=== PATIENT | male | born 1980 | race Caucasian/White ===

== ENCOUNTER 2024-12-09 15:39 | Outpatient (CLI) | payer BC, SELFPAY ==
--- NOTE | 2024-12-09 15:47 | XR_ITS ---
FINAL REPORT CLINICAL HISTORY: Assess fecal burden COMPARISON: None FINDINGS: A single view of the abdomen was obtained. The visualized intestinal gas pattern appears unremarkable without evidence to suggest obstruction. No evidence of fecal impaction. No abnormal radiopacities are seen in the abdomen. IMPRESSION: No fecal impaction. Reviewed, Interpreted and Dictated by Philip Bennett MD Transcribed by Olimpia Partida Authenticated and [facility]
--- OUTSIDE RECORDS SUMMARY | 2024-12-09 15:47 | XMS_ITS | Encounter Summary ---
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 Name Role Phone Unavailable Primary Care Provider Unavailabl e Reason for Referral * Consultation (Routine) - Authorized Specialty Diagnoses / Procedures Referred By Contac t Referred To Contact Orthopaedic Surgery Diagnoses Rib pain on left side Dione Cheung PA [address] [id number] Phone: tel: fax: Referral ID Status Reason Start Date Expiration Date Visits Requested Visits Authorized [id number] Authorized Specialty Services Required 10/28/2024 04/29/2026 1 1 Encounter Details Date Type Department Care Team (Late st Contact Info) Description 10/28/2024 Community Orders Community [facility] [address] [place] [address] Dione Cheung PA [facility] [place] [address] Rib pain on left side (Primary Dx) Social History Tobacco Use Types Packs/Day Years Used Date Smoking Tobacco: Never Assessed Sex and Gender Information Value Date Recorded Sex Assigned at Not on file Legal Sex Male 8:26 PM EDT Gender Identity Not on file Sexual Orientation Not on file documented as of this encounter Plan of Treatment Scheduled Referrals Name Type Priority Associated Diagnoses Order Schedule Ambulatory referral to General Orthopaedics Outpatient Referral Routine Rib pain on left side Expected: 10/28/2024 (Approximate), Expires: 05/01/2026 documented as of this encounter Visit Diagnoses Diagnosis Rib pain on left side- Primary documented in this encounter
--- OUTSIDE RECORDS SUMMARY | 2024-12-09 15:47 | XMS_ITS | Clinical Summary ---
Author Organization Healthcare Address [address] 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
== END 2024-12-09 23:59 | disposition home or self-care (01) ==
LOC: RAD 15:43
PROVIDERS: PCP Family Medicine; Visit Provider Internal Medicine Gastroenterology
DX: K59.89 Other specified functional intestinal disorders (principal)
CPT/HCPCS: 74018

== ENCOUNTER 2025-04-15 07:38 | Day surgery (SDC) | payer BC, SELFPAY ==
--- NOTE | 2025-04-10 10:42 | EXP.HP ---
History of Present Illness *Admission Date: 04/15/25 *History of present illness: Mr. Finley is a 44-year-old gentleman who is here for diagnostic EGD. He was reporting pain in the left flank that would radiate around to the back. He thought this was related to weight lifting and was musculoskeletal. He did use NSAIDs and laid off the lifting but his symptoms persisted. He did have extensive testing including EKG, chest x-ray, CAT scan and troponins which were normal. He also reports left precordial chest pain. 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 However, he does report excessive belching. He reports no significant bloating or gassiness. He had been on pantoprazole which he did not feel was helping his symptoms. Since he has been off of this he has had more heartburn. However, he states that the pain is in the left precordium now more so than within the abdomen. He does state that initially he had some heartburn and then ever since then when he had a belch and heartburn he feels pain in the left chest. His abdominal x-ray did show a higher stool burden. The patient was placed on buspirone but has noted no remarkable change in his symptoms. When he stopped pantoprazole he has had the increased heartburn and has been on [id number] famotidine which helps some. The examination is deemed medically necessary for diagnostic EGD. The patient has been seen, interviewed and examined prior to the procedure by both myself and the anesthesia provider. [facility] Disclaimer: The information contained in this section may have been updated after the patient was seen, as this information can be updated by other users. Medical History No significant medical problems Surgical History Hx of tonsillectomy H/O knee surgery Family History Grandfather Prostate cancer Heart attack Social History (Updated 04/15/25 @ 08:29 by Krystal Lee RN) Smoking Status: Never smoker alcohol intake: never substance use type: denies use current occupational status: employed Travel in the last 8 weeks?: None caffeine: Yes Have you lived/traveled outside US in past 30 days?: No Contact w/someone who lives/traveled outside US past 30 days?: No Exposure to someone with infectious disease in past 14 days?: No Do you have a fever (greater than 100.4 F or 38 C)?: No Have you tested positive for COVID-19?: No Exposed to someone with COVID-19 in past 14 days?: No Do you have a sore throat?: No Do you have a cough?: No Do you have any weakness?: No Are you experiencing any nausea/vomitting?: No Do you have any diarrhea?: No Are you experiencing any unusual bleeding?: No Do you have any muscle aches/pain?: No Do you have any abdominal pain?: No Are you experiencing loss of taste or smell?: No Review of Systems Review of Systems Review of systems (narrative): Negative *Cardiovascular Comments: Negative *Gastrointestinal Comments: Negative *Genitourinary Comments: Negative *Musculoskeletal Comments: Negative *Neurologic Comments: Negative Meds Home Medications and Allergies Home Medications ?Medication ?Instructions ?Recorded ?Confirmed ?Type Saccharomyces boulardii 250 mg 250 mg PO DAILY 12/09/24 04/15/25 History capsule (Digest Probiotic (S.boulardii)) buspirone 10 mg tablet 10 mg PO BID #60 tabs 12/09/24 04/15/25 Rx cholecalciferol (vitamin D3) 250 250 mcg PO DAILY 12/09/24 04/15/25 History mcg (10,000 unit) capsule elderberry fruit 350 mg capsule 350 mg PO DAILY 12/09/24 04/15/25 History hydroxyzine HCl 25 mg tablet 25 mg PO NEEDED PRN Anxiety 12/09/24 04/15/25 History multivitamin 1 tab PO DAILY 12/09/24 04/15/25 History saw palmetto 500 mg capsule 500 mg PO DAILY 12/09/24 04/15/25 History zinc acetate 50 mg (zinc) capsule 50 mg PO DAILY 12/09/24 04/15/25 History psyllium husk (with sugar) 3 1 tbsp PO DAILY 02/10/25 04/15/25 History gram/12 gram oral powder (Konsyl (sugar)) famotidine 10 mg tablet 10 mg PO DAILY 04/15/25 04/15/25 History New Prescriptions to Start Prescriptions: Allergies Allergy/AdvReac Type Severity Reaction Status Date / Time No Known Allergies Allergy Verified 04/15/25 08:18 Exam *Routine HEENT Exam Head: Present normocephalic Eye: Present EOMI and PERRL ENT: Present mucous membranes moist *Routine Neck Exam Neck: Present supple *Routine Respiratory Exam Respiratory: Present CTA bilaterally *Routine Cardiovascular Exam Cardiovascular: Present RRR *Routine Abdominal Exam Abdominal: Present soft and normoactive bowel sounds; Absent tenderness *Routine Rectal Exam Rectal:: deferred *Routine Genitalia Exam Genitalia:: deferred *Routine Extremities Exam Extremities: Absent cyanosis, clubbing or edema *Routine Skin Exam Skin: Present warm; Absent rash *Routine Neurological Exam Neurological: Present alert and oriented X3 Assessment and Plan *Assessment and plan (1) Left-sided chest pain: Status: Acute Category: Medical Code(s): R07.9 - Chest pain, unspecified (2) Belching: Status: Acute Category: Medical Code(s): R14.2 - Eructation (3) Heartburn: Status: Acute Category: Medical Code(s): R12 - Heartburn (4) Non-cardiac chest pain: Status: Acute Category: Medical Code(s): R07.89 - Other chest pain (5) Left upper quadrant abdominal pain: Status: Acute Category: Medical Code(s): R10.12 - Left upper quadrant pain (6) Splenic flexure syndrome: Status: Acute Category: Medical Code(s): K63.9 - Disease of intestine, unspecified Plan A/P: 1. Left-sided chest pain with belching, heartburn and some left upper quadrant abdominal pain/splenic flexure syndrome is the preprocedural diagnosis. The patient will be anesthetized/sedated using MAC sedation. The patient has been seen and examined. Cardiac and lung assessment prior to the examination is stable. Proceed with planned diagnostic EGD.
[2025-04-14 14:51] VITALS: BMI 26.6
--- NOTE | 2025-04-15 06:50 | HMH.PROCNOTE ---
[facility] Procedure Note Date: 04/15/25 Time: 09:03 Procedure Note:: Upper Endoscopy Procedure Report: Esophagogastroduodenoscopy with cold biopsies and TTS balloon dilation Endoscopost: Axel Arechiga II, MD Referring Physician: [facility] Date of Procedure: April 15, 2025 Equipment: Olympus GIF-1100 standard upper endoscope Sedation: MAC sedation Indications: Mr. Finley is a 44-year-old gentleman who is here for diagnostic EGD. He was reporting pain in the left flank that would radiate around to the back. He also has retrosternal chest pain that radiates through to the back. He originally thought this was related to weight lifting and was musculoskeletal. He did use NSAIDs and laid off the lifting but his symptoms persisted. He did have extensive testing including EKG, chest x-ray, CAT scan and troponins which were normal. He also reports left precordial chest pain. 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 However, he does report excessive belching. He reports no significant bloating or gassiness. He had been on pantoprazole which he did not feel was helping his symptoms. Since he has been off of this he has had more heartburn. However, he states that the pain is in the left precordium now more so than within the abdomen. He does state that initially he had some heartburn and then ever since then when he had a belch and heartburn he feels pain in the left chest. His abdominal x-ray did show a higher stool burden. The patient was placed on buspirone but has noted no remarkable change in his symptoms. When he stopped pantoprazole he has had the increased heartburn and has been on [id number] famotidine which helps some. The examination is deemed medically necessary for diagnostic EGD. Procedure: Prior to the procedure, a history and physical exam was performed, and patient's medications and allergies were reviewed. The risks, benefits and alternatives of the sedation and procedure were discussed with the patient. All questions were answered and informed consent was obtained. The patient was brought to the procedure room. Patient identification and proposed procedure were verified by the physician and the nurse. The patient was placed in a left lateral decubitus position and the scope was passed under direct vision. Throughout the procedure, the patient's blood pressure, pulse, and oxygen saturations were monitored continuously. The upper GI endoscopy was accomplished without difficulty. The patient tolerated the procedure well. Findings: The scope was passed directly into the upper esophagus and advanced to the third portion of the duodenum. The post bulbar duodenum, ampulla and duodenal bulb were normal with normal mucosa and conniventes. 2 cold biopsies were taken from the second portion of the duodenum for the disaccharidase assay. The scope was withdrawn through a normal duodenal bulb and pylorus into the stomach. There was mild linear reactive gastropathy of the antrum and body with some mild bile reflux. Cold biopsies were taken from the antrum. The proximal body and fundus of the stomach were normal. Upon retroflexion there was a small 1 to 2 cm sliding hiatal hernia. The scope was then withdrawn into the esophagus. There were linear superficial erosions distally consistent with grade B reflux esophagitis (LA classification). There was no evidence of Gregorio's esophagus. There were linear striations and squamous mucosal exudate and corrugation within the distal and midesophagus suggestive of eosinophilic esophagitis. Cold biopsies were taken from the distal and proximal esophagus to rule out eosinophilic esophagitis. Because of some luminal narrowing the esophagus was gently dilated to 20 mm with a TTS hydrostatic balloon. There was minimal resistance. The remainder of the esophageal mucosa was normal. Impression: 1. Grade B (LA classification) reflux esophagitis with esophageal corrugation/furrowing and mucosal exudate (suggestive of eosinophilic esophagitis or reflux esophagitis) 2. Very small 1 to 2 cm hiatal hernia 3. Bile reflux with mild linear reactive gastropathy of antrum Plan: I will follow-up the biopsies and disaccharidase assay. I am going to resume PPI therapy or Voquezna (if covered) which should certainly help. I do feel that this is gas driven reflux with esophageal spasm and I will discuss the findings with the patient and family. I will also obtain [facility] food allergy panel today.
[2025-04-15 08:21] VITALS: BP 130/63; PULSE 80; RESP 18; TEMP 36.3; O2SAT 99
[2025-04-15] MEDS: LACTATED RINGERS 1000ML 1,000 ML 50 ML IV (08:38)
--- NOTE | 2025-04-15 08:45 | P.PNANES_ITS ---
[facility] Disclaimer: The information contained in this section may have been updated after the patient was seen, as this information can be updated by other users. Medical History No significant medical problems Surgical History Hx of tonsillectomy H/O knee surgery Family History Grandfather Prostate cancer Heart attack Social History (Updated 04/15/25 @ 08:29 by Krystal Lee RN) Smoking Status: Never smoker alcohol intake: never substance use type: denies use current occupational status: employed Travel in the last 8 weeks?: None caffeine: Yes Have you lived/traveled outside US in past 30 days?: No Contact w/someone who lives/traveled outside US past 30 days?: No Exposure to someone with infectious disease in past 14 days?: No Do you have a fever (greater than 100.4 F or 38 C)?: No Have you tested positive for COVID-19?: No Exposed to someone with COVID-19 in past 14 days?: No Do you have a sore throat?: No Do you have a cough?: No Do you have any weakness?: No Are you experiencing any nausea/vomitting?: No Do you have any diarrhea?: No Are you experiencing any unusual bleeding?: No Do you have any muscle aches/pain?: No Do you have any abdominal pain?: No Are you experiencing loss of taste or smell?: No [facility] Anesthesia Checklist Patient Identification Patient Identification: Arm Band Structural Data Admitted From: Home Planned Operative Procedure/s: EGD Consent for Planned Operative Procedure(s) Verified: Yes Verified Documents: Surgical Consent and History and Physical NPO Status Verified Time NPO: 00:00 Additional verifications Anesthesia Reactions: No Airway Assessment Mallampati Score:: Class II C-Spine Mobility Assessed: Yes TMJ Mobility Assessed: Yes Dentition: Good Dentition Neurological Assessment Level of Consciousness: Awake, Alert and Appropriate Anesthesia Plan Anesthesia Risk discussed: Yes Anesthesia Plan: Verified ASA Class: II Anesthesia Type: MAC
[2025-04-15 09:05] VITALS: BP 123/73; PULSE 80; RESP 18; TEMP 36.3; O2SAT 97
[2025-04-15 09:35] VITALS: BP 126/76; BP 130/76; PULSE 72; PULSE 74; RESP 18; TEMP 36.3; O2SAT 97
[2025-04-20 18:10] LABS: Interpretation Notes (.); Lactase 28.72 (>/= 14.0); Maltase 161.72 (>/= 110.0); Palatinase 11.24 (>/= 8.5); Reference Notes (.); Sucrase 36.84 (>/= 25.0)
== END 2025-04-15 09:35 | disposition home or self-care (01) ==
PROVIDERS: Visit Provider Internal Medicine Gastroenterology
PROC: 0DJ08ZZ Inspection of Upper Intestinal Tract, Via Natural or Artificial Opening Endoscopic (ICD-10-PCS; CPT 43239; principal; 2025-04-15 09:00)
DX: K21.00 Gastro-esophageal reflux disease with esophagitis, without bleeding (principal); K44.9 Diaphragmatic hernia without obstruction or gangrene; K31.89 Other diseases of stomach and duodenum; K22.10 Ulcer of esophagus without bleeding; K59.89 Other specified functional intestinal disorders
CPT/HCPCS: 43239; 43249; 36415; 82657; 86003; 86008; C1726; J2003; J2704; J7120